=== PATIENT | male | born 1985 | race Caucasian/White ===

== ENCOUNTER 2020-10-10 05:00 | Emergency (ER) | payer MEDICAID, OTHER, SELFPAY ==
[~2020-10-10] VITALS: Ht 185.4 cm; Wt 75.0 kg
--- NOTE | 2020-10-10 05:17 | NUR ---
PT CARLA FROM [facility] FOR MEDICAL CLEARANCE, PT STATES HE HAS SI WITH A PLAN TO JUMP OFF A BUILDING, PT WAS AT THE ROOFTOP OF A BUILDING LAST NIGHT AND EX BOYFRIEND TALKED HIM DOWN, PT HAS HIV AND DEPRESSION, PT STATES HE GETS HIGH ON METH AND OCCASIONAL MARIJUANA, NAD AT THIS TIME
[2020-10-10 05:51] LABS: BASOPHILS % (AUTO) 1 % (0-1); EOSINOPHILS % (AUTO) 1 % (1-7); LYMPHOCYTES % (AUTO) 44 % (22-44); MEAN CORPUSCULAR HEMOGLOBIN 30.3 pg (27.5-34.5); MEAN CORPUSCULAR HGB CONC 34.4 g/dL (33.2-36.2); MEAN PLATELET VOLUME 6.8 fL (7.4-10.4); MONOCYTES % (AUTO) 11 % (2-9); NEUTROPHILS % (AUTO) 43 % (42-75); PLATELET COUNT 250 x10^3/uL (130-400); RED BLOOD COUNT 4.35 x10^6/uL (4.38-5.82); RED CELL DISTRIBUTION WIDTH 15.4 % (9.4-14.8)
--- NOTE | 2020-10-10 05:57 | NUR ---
room made safe for pt, garage doors down, pt belongings put in safe
[2020-10-10 05:58] LABS: ALANINE AMINOTRANSFERASE 26 U/L (12-78); ALBUMIN 3.7 g/dL (3.4-5.0); ANION GAP 4 mmol/L (5-15); CALCIUM 8.5 mg/dL (8.5-10.1); CHLORIDE 104 mmol/L (98-107)
[2020-10-10 06:00] LABS: ALKALINE PHOSPHATASE 72 U/L (45-117); BILIRUBIN,TOTAL 0.6 mg/dL (0.2-1.0); CREATININE 0.88 mg/dL (0.7-1.3); TOTAL PROTEIN 7.6 g/dL (6.4-8.2)
--- NOTE | 2020-10-10 06:10 | NUR ---
pt sent by [facility], this RN called [facility] and asked them what the plan was and it turns out the [facility] has no beds open so they sent pt here for medical clearance and a hold
--- NOTE | 2020-10-10 06:48 | NUR ---
Report from TANYA Christianson. This RN to assume full care. Pt sleeping, respirations even and unlabored.
[2020-10-10] MEDS ORDERED: CITA10TA8 PO (08:46)
[2020-10-10] MEDS ORDERED: BICT1TAB PO (08:46)
--- NOTE | 2020-10-10 09:09 | NUR ---
Pt showered and brushed teeth. Hospital bed in secure room. Sitter at bedside.
--- NOTE | 2020-10-10 09:13 | NUR ---
Pt irritated at the presence of sitter, "I don't need a bosom presser." Pt educated that this is protocol for L2K. Pt communicates understanding of L2K.
[2020-10-10] MEDS ORDERED: LORazepam 1MG TABLET ONE (09:16)
--- NOTE | 2020-10-10 09:22 | NUR ---
This RN inquired with pt about if he wanted a medication for aggitation. Pt aggreeable. Pt took med without difficulty, did not drink water. Unsure if pt swallowed medication.
[2020-10-10] MEDS ORDERED: LORazepam 1MG TABLET PO ONE (09:30)
[2020-10-10 10:07] LABS: AMPHETAMINE SCREEN, URINE Positive (Negative); BARBITURATE SCREEN, URINE Negative (Negative); BENZODIAZEPINE SCREEN, URINE Negative (Negative); CANNABINOID SCREEN, URINE Negative (Negative); COCAINE SCREEN, URINE Negative (Negative); METHADONE SCREEN, URINE Negative (Negative); OPIATE SCREEN, URINE Negative (Negative)
--- NOTE | 2020-10-10 11:01 | NUR ---
Dorian, psych BUS INSPECTOR at bedside for eval.
--- NOTE | 2020-10-10 11:27 | NUR ---
Family at bedside.
== END 2020-10-10 14:24 ==
LOC: ED 05:20 → UNDOADMOB 08:36 → EDIP 08:36
DX: R45.851 Suicidal ideations (principal); F32.3 Major depressive disorder, single episode, severe with psychotic features; F17.200 Nicotine dependence, unspecified, uncomplicated; Z90.89 Acquired absence of other organs
CPT/HCPCS: 36415; 80053; 80299; 80307; 80320; 80329; 85025; 99285; G0480